=== PATIENT | male | born 1980 | race Two or more races ===

== ENCOUNTER 2021-05-29 09:04 | Emergency (ER) | payer SELFPAY ==
[~2021-05-29] VITALS: Ht 162.6 cm; Wt 75.0 kg
[2021-05-29] MEDS ORDERED: ACET-2247 PO (09:09)
[2021-05-29] MEDS ORDERED: FLUORESCEIN SODIUM 1 MG STRIP OS ONE (09:30)
[2021-05-29] MEDS ORDERED: PROPARACAINE HCL 0.5% 15 ML OPHTHALMIC SOLUTION OU ONE (09:30)
[2021-05-29 11:34] VITALS: BP 128/71
== END 2021-05-29 11:35 | disposition home or self-care (01) ==
LOC: EMS 09:04
DX: T15.92XA Foreign body on external eye, part unspecified, left eye, initial encounter (principal); X58.XXXA Exposure to other specified factors, initial encounter; Y93.89 Activity, other specified; Y92.89 Other specified places as the place of occurrence of the external cause; Y99.8 Other external cause status
CPT/HCPCS: 99283